=== PATIENT | female | born 1980 | race Caucasian/White ===

== ENCOUNTER → 2021-09-21 | Outpatient (CLI) | payer OTHER ==
--- NOTE | 2021-09-21 11:31 | CT ---
EXAMINATION TYPE: CT wrist LT wo con DATE OF EXAM: 09/21/2021 COMPARISON: X-ray dated 09/20/2021 HISTORY: fracture of lower Lt radius CT DLP: 334 mGycm Automated exposure control for dose reduction was used. TECHNIQUE: Multiplanar CT scan of the left wrist and distal radius without IV contrast administration . 3-D reconstruction images were generated on an independent workstation and reviewed. FINDINGS: Comminuted impacted fracture of the distal radial metadiaphysis extending to the distal radial articu lar surface, mainly dorsally with minimal lateral dorsal displacement of the distal fracture fragment . Multiple suspected bone fragments with 5 x 16 mm depressed bone fragment at the dorsal aspect of the distal radial metadiaphysis seen within the bone marrow. Extension of the fracture lines into the dis savannah radioulnar articulation and radiocarpal articulation. Mildly displaced fracture of the ulnar styloid process. No other definite acute fracture line identif ied. Soft tissue swelling/edema is seen surrounding the fractures. IMPRESSION: Comminuted impacted fracture of the distal radius with mildly displaced fracture of the ulnar styloid process as described above, for orthopedic consultation.
[2021-09-21 14:30] LABS: Basophils # (A) 0.09 X 10*3/uL (0.00-0.10); Eosinophils # (A) 0.24 X 10*3/uL (0.04-0.35); Eosinophils % (A) 2.7 %; HCT 39.7 % (37.2-46.3); HGB 12.6 g/dL (12.0-15.0); Immature Grans, Automated 0.4 %; Lymphocytes # (A) 3.12 X 10*3/uL (0.90-5.00); Lymphocytes % (A) 34.9 %; MCH 29.9 pg (27.0-32.0); MCHC 31.7 g/dL (32.0-37.0); MCV 94.1 fL (80.0-97.0); Mean Platelet Volume 10.1 fL (9.5-12.2); Monocytes # (A) 0.44 X 10*3/uL (0.20-1.00); Monocytes % (A) 4.9 %; NRBC Per 100 WBC 0 /100 WBCS (0.0-0.0); Neutrophils # (A) 5.01 X 10*3/uL (1.80-7.70); Neutrophils % (A) 56.1 %; Platelet Count 454 X 10*3/uL (140-440); RBC 4.22 X 10*6/uL (4.10-5.20); RDW 13.6 % (11.5-14.5); WBC 8.94 X 10*3/uL (4.50-10.00)
[2021-09-21 14:59] LABS: African American GFR (CKD) 133.1 (60.0-200.0); Anion Gap 14.2 mmol/L (10.00-18.00); Blood Urea Nitrogen 10.2 mg/dL (9.0-27.0); Calcium 9.2 mg/dL (8.7-10.3); Carbon Dioxide 23.8 mmol/L (20.0-27.5); Non-African American GFR(CKD) 114.8 (60.0-200.0); Potassium 3.7 mmol/L (3.5-5.5)
== END | disposition home or self-care (01) ==
LOC: RADCTMAIN 10:40
PROVIDERS: ATTEND Orthopaedic Surgery Hand Surgery
DX: Z01.818 Encounter for other preprocedural examination (principal); S52.572A Other intraarticular fracture of lower end of left radius, initial encounter for closed fracture; S52.613A Displaced fracture of unspecified ulna styloid process, initial encounter for closed fracture; X58.XXXA Exposure to other specified factors, initial encounter
CPT/HCPCS: 80048; 85025

== ENCOUNTER 2021-09-24 05:52 | Day surgery (SDC) | payer OTHER ==
[2021-09-22 14:53] VITALS: BMI 24.7
--- NOTE | 2021-09-23 23:02 | P.HPOR ---
History of Present Illness H&P Date: 09/23/21 Chief Complaint: Left intra-articular distal radius fracture Subjective: This is a 40 year old female that presents today for initial evaluation regarding a left wrist injury that occurred after a fall from standing on 09/08/21. She was seen at an outside ED where reduction and splinting was performed under sedation. She has been in the splint since then and has been non-weight bearing. She denies any constant paresthesias or prior injury to this risk. She has chronic back pain and is on Percocet 10's from her pain management physician. Physical Examination: LUE: AIN/PIN/Radial/Ulnar/Median motor intact. Radial/Ulnar/Median SILT. 2+/4 Radial/Ulnar pulses palpated. 5/5 APB, 5/5 FDI. Bruisng/ swelling present along dorsal and volar wrist, no open wounds. Imaging: X-Rays of the left wrist demonstrate a left intra-articular distal radius fracture and ulnar styloid fracture. Extensive metaphyseal comminution with extension of fracture line into metadiaphyseal region. Loss of radial height and inclination, 25 degrees of dorsal angulation. Very distal fracture line of distal radius fracture with 5mm of distal cortex present. Impression: 1.) Left intra-articular distal radius fracture with metaphyseal extension. 2.) Left ulnar styloid fracture. Plan: Diagnosis and treatment options were discussed with the patient. Fracture reduction has been lost on follow up imaging today and I recommend surgical intervention. Complexity of her fracture was discussed due to the extensive metaphyseal comminution and very distal location of her fracture line and we discussed traditional volar plating may not be an option due to these characteristics and that fragment specific vs dorsal spanning plate vs pinning may be needed. She expressed understanding of this and wishes to pursue surgery. Risks and benefit of surgery including bleeding, infection, damage to surrounding tissue, need for further surgery, possible need for secondary procedure for plate removal, residual numbness were discussed and the patient wished to go forward with surgery. Urgent CT scan is ordered for surgical planning and she is placed in a new wrist splint. She is to be non weight bearing, pre-op labs are ordered. -Emil Johnson DO Orthopedic Hand/Upper Extremity Surgeon Past Medical History Past Medical History: Hyperlipidemia Additional Past Medical History / Comment(s): Degenerative Disc Disease, herniated discs in back, chronic back pain, varicose veins. History of Any Multi-Drug Resistant Organisms: MRSA Date of last positivie culture/infection: 2007 MDRO Source:: hip, stomach Past Surgical History: Hernia Repair Additional Past Surgical History / Comment(s): LEEP Procedure. Past Anesthesia/Blood Transfusion Reactions: No Reported Reaction Past Psychological History: Anxiety, Depression Smoking Status: Current every day smoker Past Alcohol Use History: None Reported, Occasional Additional Past Alcohol Use History / Comment(s): Has been smoking for 30 yrs, 2 ppd. Past Drug Use History: Marijuana Additional Drug Use History / Comment(s): Marijuana use daily. Aware no use 24 hrs prior to procedure. - Past Family History Mother Family Medical History: Deep Vein Thrombosis (DVT) Medications and Allergies Home Medications Medication Instructions Recorded Confirmed Type ARIPiprazole [Abilify] 2 mg PO QAM 09/22/21 09/22/21 History Rosuvastatin Calcium 5 mg PO DAILY 09/22/21 09/22/21 History Sertraline HCl [Zoloft] 50 mg PO QAM 09/22/21 09/22/21 History clonazePAM [KlonoPIN] 0.5 mg PO DAILY PRN 09/22/21 09/22/21 History oxyCODONE HCL/ACETAMINOPHEN 1 tab PO TID PRN 09/22/21 09/22/21 History [Percocet 10-325 mg] Allergies Allergy/AdvReac Type Severity Reaction Status Date / Time No Known Allergies Allergy Verified 09/22/21 14:34 Physical Examination Osteopathic Statement: *. No significant issues noted on an osteopathic structural exam other than those noted in the History and Physical/Consult.
[~2021-09-24 05:52] MED LIST: DEXAMETHASONE SOD PHOSPHATE 4 MG/ML 1 ML VIAL IV ONE; LACTATED RINGERS 1,000 ML IV SCH; MIDAZOLAM 2 MG/2 ML VIAL IV PRN; ONDANSETRON 4 MG/2 ML VIAL IVP ONE; SCOPOLAMINE 1 MG/72 HR PATCH TRANSDERM ONE
[2021-09-24] MEDS ORDERED: fentaNYL (PF) 50 MCG/ML 2 ML AMP IVP ONE (06:56)
[2021-09-24] MEDS ORDERED: MIDAZOLAM 2 MG/2 ML VIAL IVP ONE (06:56)
[2021-09-24] MEDS ORDERED: HYDROmorphone 0.5 MG/0.5 ML SYRINGE IVP PRN (07:00)
[2021-09-24] MEDS ORDERED: ROPIVACAINE 5 MG/ML 30 ML VIAL ONE (07:28)
[2021-09-24] MEDS ORDERED: PROPOFOL 10 MG/ML 20 ML VIAL IV ONE (07:28)
[2021-09-24] MEDS ORDERED: HYDROmorphone (PF) 1 MG/ML ONE (07:28)
[2021-09-24] MEDS ORDERED: LIDOCAINE 1% INJ 10MG/ML (20 ML MDV) ONE (07:28)
[2021-09-24] MEDS ORDERED: SODIUM CHLORIDE 0.9% (PF) 10 ML VIAL ONE (07:28)
--- NOTE | 2021-09-24 08:58 | P.ANPRN ---
Procedure Note - Anesthesia - Nerve Block Performed Left Axillary Single Time Out Performed: Yes ([id number]) Date of Procedure: 09/24/21 Procedure Start Time: 06:56 Procedure Stop Time: 07:04 Location of Patient: PreOp Indication: Acute Post-Operative Pain, Requested by Surgeon Specifically requested for management of pain by DrArben: Emil Johnson Sedation Type: Sedate with meaningful contact maintained Preparation: Sterile Prep Position: Supine Catheter: None Needle Types: Pajunk Needle Gauge: 21 Ultrasound used to visualize needle placement: Yes Ultrasound used to observe medication spread: Yes Injectate: 0.5% Ropivacaine (see comment for volume) (30cc + 10cc nacl. 10cc at ulnar, medial, radial, mskcut) Blood Aspirated: No Pain Paresthesia on Injection Noted: No Resistance on Injection: Normal Image Stored and Saved: Yes Events: Uneventful and Well Tolerated
[2021-09-24 09:34] VITALS: TEMP 98.3
[2021-09-24 09:45] VITALS: RESP 16
[2021-09-24 10:25] VITALS: BP 117/75; PULSE 86
--- NOTE | 2021-09-24 11:31 | XR ---
EXAMINATION TYPE: XR wrist limited LT DATE OF EXAM: 09/24/2021 COMPARISON: NONE HISTORY: Pain TECHNIQUE: 4 views are submitted FINDINGS: Postsurgical changes are noted. Alignment near-anatomic. IMPRESSION: Postoperative change
--- NOTE | 2021-09-24 11:35 | FL ---
EXAMINATION TYPE: FL guidance operating room DATE OF EXAM: 09/24/2021 HISTORY: Fluoroscopy time 32 seconds of fluoroscopy provided. IMPRESSION: 1. Fluoroscopy time.
--- NOTE | 2021-09-24 20:23 | P.OP ---
Date of Procedure: 09/24/21 Preoperative Diagnosis: 1.) Left intra-articular distal radius fracture, comminuted, displaced, greater than 3 parts. Postoperative Diagnosis: Left intra-articular distal radius fracture, comminuted, displaced, greater than 3 parts. Procedure(s) Performed: Open reduction internal fixation of left intra-articular distal radius fracture, comminuted, displaced, greater than 3 parts with dorsal wrist spanning plate Implants: 1.) Synthes 2.4mm LCP dorsal wrist spanning plate 2.) 0.062 Wires x 2 Anesthesia: LUISA, regional Surgeon: Emil Johnson Estimated Blood Loss (ml): 5 Pathology: none sent Condition: stable Disposition: PACU Description of Procedure: This is a 40 year old female who sustained a left displaced intra-articular distal radius fracture 2 weeks prior after a fall from standing and presents today for surgical intervention. Due to the very distal location of the distal radius fracture we discussed volar locked plating would not likely be amendable to this particular fracture type and she presents today for surgical intervention includig possible dorsal spanning wrist plate application and pinning . Risks and benefits of surgery were discussed with the patient including bleeding, damage to surrounding tissue, infection, need for further surgery for hardware removal as well as risks of anesthesia including pulmonary embolism and even and the patient wished to proceed with surgical intervention. The patient was seen in the pre-operative area by myself. Consent and H&P were completed and updated. The correct extremity was marked in the pre- operative area by myself and all other questions were answered. Operative Narrative: The patient was brought to the operating room by the department of anesthesia. They remained on the portable stretcher and a rolling hand table was brought to the side of the operative extremity. Pre-operative time out was performed indicating the correct patient, procedure and laterality. All in the room agreed. Pre-operative antibiotics were given prior to skin incision. The patient was then drifted off to sleep by the department of anesthesia. A nonsterile tourniquet was then applied to the operative extremity and the left upper extremity was then prepped and draped in normal sterile fashion. The operative extremity was the exsanguinated with an esmarch bandage and the tourniquet was inflated to 250mmHg. Longitudinal incision was made centered over the mid and proximal portion of the third metacarpal, blunt dissection was taken down to periosteum. A second incision was made longitudinally just ulnar to Abe's Tubercle. There was hematoma dorsally. Further blunt dissection down to the the proximal portion of the extensor retinaculum was performed. The 3rd dorsal compartment was incised sharply and the EPL tendon was identified and transposed. The 4th dorsal compartment was then subperiosteally elevated from radial to ulnar to make room for the spanning plate. A third incision was made proximally over the dorsal aspect of the radius. Dissection was taken down to subcutaneous tissues, interval between ECRL/ECRB and Brachioradialis was identified and the superficial radial nerve was identified and protected. Dorsal radial shaft was t hen identified in the interval. A periosteal elevator was then used to make a tunnel from distal to proximal through the windows of the 3 incisions. A 2.4 mm Synthes dorsal wrist spanning plate was then tunneled through the previously created path centered at the 3rd metacarpal distally, at the floor of the 4th dorsal compartment, and then on the bare spot of the radius just adjacent to the wrist extensors. Lobster claw clamp was used to provisionally hold the plate in place and appropriate placement was appreciated on live fluoroscopy. The distal portion of the plate was drilled and a non-locking screw was placed in the metacarpal shaft. Attention was then brought to the most proximal incision and longitudinal traction was applied along with supination and ulnar deviation and the proximal holes were drilled and filled with non-locking screws. Reduction was then checked on x-ray and was found to be acceptable with good distraction of the fracture site. The remainder of the metacarpal screws were filled with 2 additional non-locking screws after all non locking screws were inserted. All fingers were flexed and extended and there appeared to be no entrapment of extensor tendons by the plate. Attention was then brought to shinto of volar tilt and radial inclination/translation. A 0.062 K wire was inserted in the dorsal ulnar portion of the fracture and intra-focal pinning Kapandji technique was used to lever the small distal articular portion to restore volar tilt, once shinto of tilt was confirmed, the pin was then driven through the volar cortex in retrograde fashion and backed out slightly with hemostat just piercing the cortex and confirmed on x-ray. A stab incision was then made along the radial aspect of the wrist though skin only, blunt dissection was afsaneh en down with hemostat to the radial styloid. A second 0.062 K-wire was then inserted into the radial portion of the fracture and then levered distally to restore radial height and ulnar translation. Final imaging was then taken and reduction was acceptable in all planes. Pins were then cut subcutaneously. The wound was then irrigated. Subcutaneous closure was performed with 4-0 monocryl followed by skin closure with 4-0 nylon suture. Sterile dressing consisting of adaptic, 4x4s, and a volar and dorsal plaster splint was applied. Tourniquet was let down and the hand had immediate perfusion. The patient was then woken by the department of anesthesia and transferred to PACU in stable condition. The patient was then woken by the department of anesthesia and transferred to PACU in stable condition. Emil Johnson DO Orthopedic Hand/Upper Extremity Surgeon
== END 2021-09-24 11:50 | disposition home or self-care (01) ==
LOC: OR 05:52
PROVIDERS: ATTEND Orthopaedic Surgery Hand Surgery
DX: S52.572A Other intraarticular fracture of lower end of left radius, initial encounter for closed fracture (principal); S52.612A Displaced fracture of left ulna styloid process, initial encounter for closed fracture; W18.30XA Fall on same level, unspecified, initial encounter; E78.5 Hyperlipidemia, unspecified; G89.29 Other chronic pain; M54.9 Dorsalgia, unspecified; F41.9 Anxiety disorder, unspecified; F32.A Depression, unspecified; I83.90 Asymptomatic varicose veins of unspecified lower extremity; F17.200 Nicotine dependence, unspecified, uncomplicated; Z79.899 Other long term (current) drug therapy; Z86.14 Personal history of Methicillin resistant Staphylococcus aureus infection; Z98.890 Other specified postprocedural states; Z97.2 Presence of dental prosthetic device (complete) (partial)
CPT/HCPCS: 25609; 81025; 64417; 76942; 73100; C1713; J2250; J1100; J0690; J2405; J2001; J3010; J1170 ×2; J2795; J2704; 64415

== ENCOUNTER 2021-12-08 06:58 | Day surgery (SDC) | payer OTHER ==
--- NOTE | 2021-12-06 09:39 | P.HPOR ---
History of Present Illness H&P Date: 12/06/21 Chief Complaint: Left distal radius fracture s/p ORIF Subjective: This is a 40 year old female that presents today for a post-operative visit after undergoing ORIF of her complex left distal radius fracture with dorsal spanning plate application and Kapandji pinning on 09/24/21. Her pain has drastically improved since last visit and she has been working on ROM of the fingers and hand. She denies any new injury. 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 Physical Examination: LUE: AIN/PIN/Radial/Ulnar/Median motor intact. Radial/Ulnar/Median SILT. 2+/4 Radial/Ulnar pulses palpated. Dorsal incisions healed. Able to make full composite fist. Imaging: X-Rays of the left wrist demonstrate intact dorsal spanning plate with 2 k-wire present with no evidence of hardware failure. Episcopalian of radial height, inclination and volar tilt is appreciated with signs of serafin healing. Impression: 1.) S/P Left distal radius ORIF Plan: Diagnosis and treatment options and were discussed with the patient. She has signs of bone healing on x-ray. I recommend another 3 weeks of plate retention until hardware removal is performed, she is agreeable with this plan. She is tentatively scheduled for hardware removal of her left wrist ( plate and screws and 2 k-wires). She is to remain non-weightbearing and may continue to work on hand and finger ROM. -Emil Johnson DO Orthopedic Hand/Upper Extremity Surgeon Past Medical History Past Medical History: Hyperlipidemia Additional Past Medical History / Comment(s): back pain, umbilical hernia History of Any Multi-Drug Resistant Organisms: MRSA Date of last positivie culture/infection: 2007 MDRO Source:: hip, stomach Past Surgical History: Hernia Repair Additional Past Surgical History / Comment(s): LEEP Past Anesthesia/Blood Transfusion Reactions: No Reported Reaction Past Alcohol Use History: None Reported, Rare - Past Family History Mother Family Medical History: Deep Vein Thrombosis (DVT) Medications and Allergies Home Medications Medication Instructions Recorded Confirmed Type ARIPiprazole [Abilify] 2 mg PO QAM 09/22/21 09/24/21 History Rosuvastatin Calcium 5 mg PO DAILY 09/22/21 09/24/21 History Sertraline HCl [Zoloft] 50 mg PO QAM 09/22/21 09/24/21 History clonazePAM [KlonoPIN] 0.5 mg PO DAILY PRN 09/22/21 09/24/21 History oxyCODONE HCL/ACETAMINOPHEN 1 tab PO TID PRN 09/22/21 09/24/21 History [Percocet 10-325 mg] Allergies Allergy/AdvReac Type Severity Reaction Status Date / Time No Known Allergies Allergy Verified 09/24/21 06:30 Physical Examination Osteopathic Statement: *. No significant issues noted on an osteopathic structural exam other than those noted in the History and Physical/Consult.
[2021-12-07 09:19] VITALS: BMI 23.6
[~2021-12-08 06:58] MED LIST changes: -DEXAMETHASONE SOD PHOSPHATE 4 MG/ML 1 ML VIAL IV ONE; +LIDOCAINE 1% (10MG/ML) FOR IV START INTRADERMA PRN; -MIDAZOLAM 2 MG/2 ML VIAL IV PRN; -ONDANSETRON 4 MG/2 ML VIAL IVP ONE; -SCOPOLAMINE 1 MG/72 HR PATCH TRANSDERM ONE
[2021-12-08] MEDS ORDERED: fentaNYL (PF) 50 MCG/ML 2 ML AMP IV PRN (07:00)
[2021-12-08] MEDS ORDERED: ONDANSETRON 4 MG/2 ML VIAL ONE (07:46)
[2021-12-08] MEDS ORDERED: DEXAMETHASONE SOD PHOSPHATE 4 MG/ML 1 ML VIAL IVP ONE (07:48)
[2021-12-08] MEDS ORDERED: ONDANSETRON 4 MG/2 ML VIAL IVP ONE (07:48)
[2021-12-08] MEDS ORDERED: fentaNYL (PF) 50 MCG/ML 2 ML AMP ONE (08:10)
[2021-12-08] MEDS ORDERED: MIDAZOLAM 2 MG/2 ML VIAL ONE (08:10)
[2021-12-08] MEDS ORDERED: LIDOCAINE 2% INJ 20 MG/ML (2 ML VIAL) ONE (08:10)
[2021-12-08] MEDS ORDERED: PROPOFOL 10 MG/ML 20 ML VIAL IV ONE (08:10)
[2021-12-08] MEDS ORDERED: HYDROmorphone (PF) 1 MG/ML ONE (08:10)
[2021-12-08] MEDS ORDERED: BUPIVACAINE (PF) 0.5% 30 ML VIAL SQ ONE ×2 (08:35→09:07)
[2021-12-08 09:31] VITALS: TEMP 97.2
[2021-12-08 10:15] VITALS: RESP 20
[2021-12-08 10:20] VITALS: BP 123/86; PULSE 83
--- NOTE | 2021-12-08 18:39 | P.OP ---
Date of Procedure: 12/08/21 Preoperative Diagnosis: Left intra-articular distal radius fracture s/p temporary wrist spanning plate application. Postoperative Diagnosis: Left intra-articular distal radius fracture s/p temporary wrist spanning plate application. Procedure(s) Performed: 1.) Left wrist removal of deep implants. ( Dorsal spanning plate and K-wire x 2 2.) Extensor tenolysis at level of hand/wrist. Anesthesia: PETRAA Surgeon: Emil Johnson Estimated Blood Loss (ml): 5 Pathology: none sent Condition: stable Disposition: PACU Description of Procedure: This is a 41 year old female who presents today for a left wrist removal of deep hardware after undergoing temporary spanning fixiation for a comminuted, distally located, intra-articular distal radius fracture. Risks and benefits of surgery were discussed with the patient including bleeding, damage to surrounding tissue, infection, need for further surgery as well as risks of anesthesia including pulmonary embolism and even and the patient wished to proceed with surgical intervention. The patient was seen in the pre-operative area by myself. Consent and H&P were completed and updated. The correct extremity was marked in the pre-operative area by myself and all other questions were answered Operative Narrative: The patient was brought to the operating room by the department of anesthesia. They remained on the portable stretcher and a rolling hand table was brought to the side of the operative extremity. Pre-operative time out was performed indicating the correct patient, procedure and laterality. All in the room agreed. Pre-operative antibiotics were given prior to skin incision. The patient was then drifted off to sleep by the department of anesthesia. A nonsterile tourniquet was then applied to the operative extremity and the left upper extremity was then prepped and draped in normal sterile fashion. The operative extremity was the exsanguinated with an esmarch bandage and the tourniquet was inflated to 250mmHg. Longitudinal incision was made centered over the mid and proximal portion of the third metacarpal at site of previous scar, blunt dissection was taken down to periosteum. A second incision was made longitudinally just ulnar to Abe's Tubercle at site of previous scar. Further blunt dissection down to the the proximal portion of the extensor retinaculum was performed. The 4th dorsal compartment was then subperiostally elevated from radial to ulnar to reveal the spanning plate. A third incision was made proximally over the dorsal aspect of the radius at the site of the previous incision. Dissection was taken down to subcutaneous tissues, interval between ECRL/ECRB and Brachioradialis was identified and the superficial radial nerve was identified and protected. Dorsal radial shaft was then identified in the interval with the proximal plate being identified. All three non-locking screws were removed from the shaft. Third metacarpal shaft screws were then removed with screwdriver. A periosteal elevator was used to free the plate from surrounding bone to loosen the plate which was then removed. The wound was then irrigated. Extensor tenolysis was then performed through the middle window, freeing surrounding scar tissue from the third and four dorsal compartment tendons which were all found to be intact. Through the distal incision the third metacarpal extensor tendon was identified and found to be intact and scar tissue and adhesions were broken up and scar tissue was excised. Throught the middle window incision K-wire was identified and removed. Another small incision was made over the radial aspect of the wrist where the radial k-wire was palpated. Blunt dissection was performed down to the pin and the pin was removed with ease. Fluoroscopy was then utilized to confirm removal of all plates and screws and k-wires. Wrist was flexed and extended under fluoroscopy and distal radius fracture was moving as a single unit and 50 degrees of flexion/extension was appreciated. There was solid union of the fracture site appreciated with orthodox of volar tilt, radial height and inclination. Wounds were irrigated and subcutaneous closure was performed with 4-0 monocryl followed by skin closure with running 4-0 monocryl suture. Sterile dressing consisting of steri strips, mastisol, 4x4s, and cast padding was applied. Tourniquet was let down and the hand had immediate perfusion. The patient was then woken by the department of anesthesia and transferred to PACU in stable condition. Emil Johnson DO Orthopedic Hand/Upper Extremity Surgeon
== END 2021-12-08 10:23 | disposition home or self-care (01) ==
LOC: OR 06:58
PROVIDERS: ATTEND Orthopaedic Surgery Hand Surgery
DX: Z47.2 Encounter for removal of internal fixation device (principal); E78.5 Hyperlipidemia, unspecified; F17.210 Nicotine dependence, cigarettes, uncomplicated; M54.9 Dorsalgia, unspecified; Z86.14 Personal history of Methicillin resistant Staphylococcus aureus infection; Z79.899 Other long term (current) drug therapy; Z98.890 Other specified postprocedural states; Z97.2 Presence of dental prosthetic device (complete) (partial); Z82.49 Family history of ischemic heart disease and other diseases of the circulatory system
CPT/HCPCS: 81025; 20680; J2250; J1100; J0690; J2405; J3010; J1170; J2704; J2001

== ENCOUNTER 2024-02-27 23:21 | Emergency (ER) | payer OTHER ==
[2024-02-27 23:25] VITALS: RESP 18
--- NOTE | 2024-02-27 23:50 | ED ---
ENT HPI - General Chief complaint: ENT Stated complaint: Earache Time Seen by Provider: 02/27/24 23:48 Source: patient, RN notes reviewed Mode of arrival: ambulatory Limitations: no limitations - History of Present Illness Initial comments: 43-year-old female presented to ER with a chief complaint of right ear pain. Patient states last night she started to experience a sharp pain in her right ear. She states today she noticed a pink watery drainage from her right ear. She states it is difficult to hear out of her right ear. She denies any injuri es or traumas. Denies any recent sinus infections or colds. Patient states pain started out of the blue. Denies any fevers, chills or other complaints. - Related Data Home Medications Medication Instructions Recorded Confirmed ARIPiprazole [Abilify] 2 mg PO QAM 09/22/21 12/08/21 Rosuvastatin Calcium 5 mg PO DAILY 09/22/21 12/08/21 Sertraline HCl [Zoloft] 50 mg PO QAM 09/22/21 12/08/21 clonazePAM [KlonoPIN] 0.5 mg PO DAILY PRN 09/22/21 12/08/21 oxyCODONE HCL/ACETAMINOPHEN 1 tab PO TID PRN 09/22/21 12/08/21 [Percocet 10-325 mg] Allergies Allergy/AdvReac Type Severity Reaction Status Date / Time No Known Allergies Allergy Verified 02/27/24 23:25 Review of Systems ROS Statement: Those systems with pertinent positive or pertinent negative responses have been documented in the HPI. ROS Other: All systems not noted in ROS Statement are negative. Past Medical History Past Medical History: Hyperlipidemia Additional Past Medical History / Comment(s): back pain, fx lt wrist 09/2021, heart palpitations History of Any Multi-Drug Resistant Organisms: MRSA Date of last positivie culture/infection: 2007 MDRO Source:: hip, stomach Past Surgical History: Hernia Repair, Orthopedic Surgery Additional Past Surgical History / Comment(s): LEEP, orif lt wrist Past Anesthesia/Blood Transfusion Reactions: No Reported Reaction Past Psychological History: Anxiety, Depression Smoking Status: Current every day smoker, Vaper Past Alcohol Use History: Daily Past Drug Use History: Marijuana - Past Family History Mother Family Medical History: COPD, Diabetes Mellitus, Deep Vein Thrombosis (DVT), Hypertension General Exam General appearance: alert, in no apparent distress Head exam: Present: atraumatic, normocephalic, normal inspection Eye exam: Present: normal appearance, PERRL, EOMI. Absent: scleral icterus, conjunctival injection, periorbital swelling ENT exam: Present: normal exam, normal oropharynx, other (Right tympanic membrane appears intact. There is fluid behind membrane. Blood is noted behind membrane. No mastoid tenderness bilaterally. Left tympanic membrane normal) Neck exam: Present: normal inspection. Absent: tenderness, meningismus, lymphadenopathy Respiratory exam: Present: normal lung sounds bilaterally. Absent: respiratory distress, wheezes, rales, rhonchi, stridor Cardiovascular Exam: Present: regular rate, normal rhythm, normal heart sounds. Absent: systolic murmur, diastolic murmur, rubs, gallop, clicks Neurological exam: Present: alert, oriented X3, CN II-XII intact Skin exam: Present: warm, dry, intact, normal color. Absent: rash Course Vital Signs 02/27/24 23:22 Temperature 98.4 F Pulse Rate 113 H Respiratory 18 Rate Blood Pressure 134/89 O2 Sat by Pulse 98 Oximetry Medical Decision Making - Medical Decision Making Was pt. sent in by a medical professional or institution (, PA, RIDING TEACHER, urgent care, hospital, or half-way...) When possible be specific @ -No Did you speak to anyone other than the patient for history (EMS, parent, family, police, friend...)? What history was obtained from this source @ -No Did you review nursing and triage notes (agree or disagree)? Why? @ -I reviewed and agree with nursing and triage notes Were old charts reviewed (outside hosp., previous admission, EMS record, old EKG, old radiological studies, urgent care reports/EKG's, half-way records)? Report findings @ -No old charts were reviewed Differential Diagnosis (chest pain, altered mental status, abdominal pain women, abdominal pain men, vaginal bleeding, weakness, fever, dyspnea, syncope, headache, dizziness, GI bleed, back pain, seizure, CVA, palpatations, mental health, musculoskeletal)? @ -Foreign body, otitis media, otitis externa, tympanic membrane perforation, vertigo This list is not meant to be all-inclusive EKG interpreted by me (3pts min.). @ -None done X-rays interpreted by me (1pt min.). @ -None done CT interpreted by me (1pt min.). @ -None done U/S interpreted by me (1pt. min.). @ -None done What testing was considered but not performed or refused? (CT, X-rays, U/S, labs)? Why? @ -None What meds were considered but not given or refused? Why? @ -None Did you discuss the management of the patient with other professionals (professionals i.e. , PA, RIDING TEACHER, lab, RT, psych nurse, director social, irish moss operator, teacher, marine safety officer, caseworker intake)? Give summary @ -No Was smoking cessation discussed for >3mins.? @ -I discussed smoking cessation for greater than 3 minutes. The risk of smoking were discussed with the patient including but not limited to risks of cancer, stroke, coronary artery disease and COPD. Also discussed with patient were multiple methods of quitting smoking. Lastly we discussed the financial cost of smoking. Was critical care preformed (if so, how long)? @ -No Were there social determinants of health that impacted care today? How? (Homelessness, low income, unemployed, alcoholism, drug addiction, transportation, low edu. Level, literacy, decrease access to med. care, snf, rehab)? @ -No Was there de-escalation of care discussed even if they declined (Discuss DNR or withdrawal of care, Hospice)? DNR status @ -No What co-morbidities impacted this encounter? (DM, HTN, Smoking, COPD, CAD, Cancer, CVA, ARF, Chemo, Hep., AIDS, mental health diagnosis, sleep apnea, morbid obesity)? @ -None Was patient admitted / discharged? Hospital course, mention meds given and route, prescriptions, significant lab abnormalities, going to OR and other pertinent info. @ -Discharge. 43-year-old female presented to ER with chief complaint of right ear pain. History and physical exam completed. Vitals within normal limits. Exam remarkable for what appears to be an intact right tympanic membrane. There is blood and fluid noted behind membrane. Clear fluid is noted draining from the right ear. No mastoid tenderness bilaterally. Left membrane appears normal. Exam otherwise benign. Due to concern of perforation with fluid and blood behind the ear and drainage patient will be started on ofloxacin eardrops. Advised patient to follow-up very closely with an ENT, referral given. Strict return parameters discussed. Patient discharged in stable condition with follow-up to ENT. Patient verbally expressed understanding and agreement with care plan. Case discussed with ED attending, Dr. Goodrich. Undiagnosed new problem with uncertain prognosis? @ -No Drug Therapy requiring intensive monitoring for toxicity (Heparin, Nitro, Insulin, Cardizem)? @ -No Were any procedures done? @ -No Diagnosis/symptom? @ -Tympanic membrane perforation Acute, or Chronic, or Acute on Chronic? @ -Acute Uncomplicated (without systemic symptoms) or Complicated (systemic symptoms)? @ -Uncomplicated Side effects of treatment? @ -No Exacerbation, Progression, or Severe Exacerbation? @ -No Poses a threat to life or bodily function? How? (Chest pain, USA, NM, pneumonia, PE, COPD, DKA, ARF, appy, cholecystitis, CVA, Diverticulitis, Homicidal, Suicidal, threat to staff... and all critical care pts) @ -No Disposition Clinical Impression: Tympanic membrane perforation Disposition: HOME SELF-CARE Condition: Stable Instructions (If sedation given, give patient instructions): Ruptured Eardrum (ED) Additional Instructions: Please follow-up with ENT by the end of the week. Use ofloxacin drops (5 drops in affected ear twice daily for 7 days). Return to ER for any new or worsening concerns. Is patient prescribed a controlled substance at d/c from ED?: No Referrals: Jacque Lay NPC [Primary Care Provider] - 1-2 days Geoffrey Cannon MD [STAFF PHYSICIAN] - 1-2 days Time of Disposition: 23:49
[2024-02-28] MEDS: OFLOXACIN 0.3% OPHTH DROPS 5 ML BOTTLE RIGHT EAR STA (00:20)
[2024-02-28 00:24] VITALS: BP 128/81; PULSE 91; TEMP 98.2
== END 2024-02-28 00:24 | disposition home or self-care (01) ==
LOC: EC 23:21
CPT/HCPCS: 99282

== ENCOUNTER 2025-01-09 23:09 | Emergency (ER) | payer OTHER ==
--- NOTE | 2025-01-09 23:28 | ED ---
Psych HPI - General Source: patient, RN notes reviewed Mode of arrival: ambulatory Limitations: no limitations <Pau Brown - Last Filed: 01/10/25 03:50> <Orlin Lacy - Last Filed: 01/10/25 09:30> - General Stated Complaint: SI Time Seen by Provider: 01/09/25 23:28 - History of Present Illness Initial Comments: 44-year-old female presented to the ER for suicidal ideation. Patient is petitioned by daughter. Patient reports she was having an argument with her daughter as she did not picking machine operator her granddaughter and over 24 hours. Patient states she was upset and took 2 Percocet tens, two 0.5 mg Klonopin and two 1 mg Xanax around 10:30 PM. She also reports drinking vodka. Per petition, patient texted daughter saying "I am going to sleep forever". Patient denies SI or attempt of overdose. Denies HI or auditory or visual hallucinations. Patient admits to marijuana use no other illicit drug use. Patient denies any current pain. (Pau Brown) - Related Data Home Medications Medication Instructions Recorded Confirmed ARIPiprazole [Abilify] 2 mg PO QAM 09/22/21 12/08/21 Rosuvastatin Calcium 5 mg PO DAILY 09/22/21 12/08/21 Sertraline HCl [Zoloft] 50 mg PO QAM 09/22/21 12/08/21 clonazePAM [KlonoPIN] 0.5 mg PO DAILY PRN 09/22/21 12/08/21 oxyCODONE HCL/ACETAMINOPHEN 1 tab PO TID PRN 09/22/21 12/08/21 [Percocet 10-325 mg] Allergies Allergy/AdvReac Type Severity Reaction Status Date / Time No Known Allergies Allergy Verified 02/27/24 23:25 Review of Systems ROS Other: All systems not noted in ROS Statement are negative. <Pau Brown - Last Filed: 01/10/25 03:50> ROS Other: All systems not noted in ROS Statement are negative. <Orlin Lacy - Last Filed: 01/10/25 09:30> ROS Statement: Those systems with pertinent positive or pertinent negative responses have been documented in the HPI. Past Medical History Past Medical History: Hyperlipidemia Additional Past Medical History / Comment(s): back pain, fx lt wrist 09/2021, heart palpitations History of Any Multi-Drug Resistant Organisms: MRSA Date of last positivie culture/infection: 2007 MDRO Source:: hip, stomach Past Surgical History: Hernia Repair, Orthopedic Surgery Additional Past Surgical History / Comment(s): LEEP, orif lt wrist Past Anesthesia/Blood Transfusion Reactions: No Reported Reaction Past Psychological History: Anxiety, Depression Smoking Status: Current every day smoker, Vaper Past Alcohol Use History: Daily Past Drug Use History: Marijuana - Past Family History Mother Family Medical History: COPD, Diabetes Mellitus, Deep Vein Thrombosis (DVT), Hypertension <Pau Brown - Last Filed: 01/10/25 03:50> General Exam Limitations: no limitations General appearance: alert, in no apparent distress, appears intoxicated (Patient intoxicated frequently falling asleep during examination) Respiratory exam: Present: normal lung sounds bilaterally. Absent: respiratory distress, wheezes, rales, rhonchi, stridor Cardiovascular Exam: Present: regular rate, normal rhythm, normal heart sounds. Absent: systolic murmur, diastolic murmur, rubs, gallop, clicks Neurological exam: Present: alert Psychiatric exam: Present: suicidal ideation (Intoxicated) Skin exam: Present: warm, dry, intact, normal color. Absent: rash <Pau Brown - Last Filed: 01/10/25 03:50> Course Vital Signs 01/09/25 01/10/25 01/10/25 23:21 00:53 02:00 Temperature 97.7 F Pulse Rate 77 78 82 Respiratory 17 17 16 Rate Blood Pressure 117/96 124/94 140/94 O2 Sat by Pulse 94 L 100 100 Oximetry 01/10/25 01/10/25 01/10/25 03:00 04:00 05:28 Temperature Pulse Rate 76 76 86 Respiratory 16 15 16 Rate Blood Pressure 119/95 O2 Sat by Pulse 98 99 100 Oximetry 01/10/25 05:47 Temperature Pulse Rate 81 Respiratory 16 Rate Blood Pressure 117/97 O2 Sat by Pulse 95 Oximetry Medical Decision Making - Lab Data Result diagrams: 01/10/25 00:21 01/10/25 00:21 - EKG Data -: EKG Interpreted by Or <Pau Brown - Last Filed: 01/10/25 03:50> - Lab Data Result diagrams: 01/10/25 00:21 01/10/25 00:21 <Orlin Lacy - Last Filed: 01/10/25 09:30> - Medical Decision Making Was pt. sent in by a medical professional or institution (, PA, DIRECTOR MBA, urgent care, hospital, or [facility]...) When possible be specific @ -No Did you speak to anyone other than the patient for history (EMS, parent, family, police, friend...)? What history was obtained from this source @ -No Did you review nursing and triage notes (agree or disagree)? Why? @ -I reviewed and agree with nursing and triage notes Were old charts reviewed (outside hosp., previous admission, EMS record, old EKG, old radiological studies, urgent care reports/EKG's, [facility] records)? Report findings @ -No old charts were reviewed Differential Diagnosis (chest pain, altered mental status, abdominal pain women, abdominal pain men, vaginal bleeding, weakness, fever, dyspnea, syncope, head ache, dizziness, GI bleed, back pain, seizure, CVA, palpatations, mental health, musculoskeletal)? @ -Differential Mental Health:Depression, anxiety, bipolar, psychosis, schizophrenia, borderline personality, situational depression, adjustment disorder, behavioral disorder, brain tumor, malingering, substance abuse, encephalopathy, medication reaction, dementia, hypothyroidism, degenerative neur ologic disorder, lupus.... This is not meant to be all-inclusive list EKG interpreted by me (3pts min.). @ -As above X-rays interpreted by me (1pt min.). @ -None done CT interpreted by me (1pt min.). @ -None done U/S interpreted by me (1pt. min.). @ -None done What testing was considered but not performed or refused? (CT, X-rays, U/S, labs)? Why? @ -None What meds were considered but not given or refused? Why? @ -None Did you discuss the management of the patient with other professionals ( professionals i.e. , KONG, DIRECTOR MBA, lab, RT, psych nurse, social services coordinator, service plumber, teacher, vessel traffic officer, pillowcase cleaner)? Give summary @ -No Was smoking cessation discussed for >3mins.? @ -No Was critical care preformed (if so, how long)? @ -No Were there social determinants of health that impacted care today? How? (Homelessness, low income, unemployed, alcoholism, drug addiction, transportation, low edu. Level, literacy, decrease access to med. care, retirement, rehab)? @ -No Was there de-escalation of care discussed even if they declined (Discuss DNR or withdrawal of care, Hospice)? DNR status @ -No What co-morbidities impacted this encounter? (DM, HTN, Smoking, COPD, CAD, Cancer, CVA, ARF, Chemo, Hep., AIDS, mental health diagnosis, sleep apnea, morbid obesity)? @ -None Was patient admitted / discharged? Hospital course, mention meds given and route, prescriptions, significant lab abnormalities, going to OR and other pertinent info. @ -44-year-old female presented the ER via EMS for mental health evaluation. Patient is petitioned by daughter. Vital signs stable. Patient appears intoxicated frequently falling asleep during exam. No signs of acute distress. Given concern of possible overdose laboratory studies obtained remarkable for mild elevation in AST 53, ALT 39 this may be reactive to alcohol consumption. Salicylates <1.0, acetaminophen<10.0, serum alcohol 106. Poison control was contacted by Amira MAYBERRY they recommend observation until 5 AM. Patient provided with IV fluids and will be monitored in the emergency department until medically cleared for EPS evaluation. (Pau Brown) Case was discussed with psychiatric worker with plans for discharge. Patient reevaluated. Patient denies suicidal ideation and does contract for [facility] Diagnosis: Depression, suicidal ideation Acuity: Acute, acute (Orlin Lacy) - Lab Data Lab Results 01/10/25 01/10/25 01/10/25 Range/Units 00:21 00:21 07:04 WBC 7.10 (4.50-10.00) 10*3/uL RBC 4.57 (4.10-5.20) 10*6/uL Hgb 14.0 (12.0-15.0) g/dL Hct 42.0 (37.2-46.3) % MCV 91.9 (80.0-97.0) fL MCH 30.6 (27.0-32.0) pg MCHC 33.3 (32.0-37.0) g/dL Plt Count 382 (140-440) 10*3/uL MPV 9.9 (9.5-12.2) fL Immature Gran % (Auto) 0.3 % Neutrophils % 47.7 % Lymphocytes % 39.0 % Monocytes % 7.0 % Eosinophils % 4.6 % Basophils % 1.4 % Immature Gran # 0.02 (0.00-0.04) 10*3/uL Neutrophils # 3.38 (1.80-7.70) 10*3/uL Lymphocytes # 2.77 (0.90-5.00) 10*3/uL Monocytes # 0.50 (0.20-1.00) 10*3/uL Eosinophils # 0.33 (0.04-0.35) 10*3/uL Basophils # 0.10 (0.00-0.10) 10*3/uL Sodium 142 (137-145) mmol/L Potassium 4.0 (3.5-5.1) mmol/L Chloride 107 (98-107) mmol/L Carbon Dioxide 24 (22-30) mmol/L Anion Gap 11 mmol/L BUN 10 (7-17) mg/dL Creatinine 0.55 (0.52-1.04) mg/dL Est GFR (CKD-EPI)AfAm >90 (>60 ml/min/1.73 sqM) Est GFR (CKD-EPI)NonAf >90 (>60 ml/min/1.73 sqM) Glucose 93 (74-99) mg/dL Calcium 9.7 (8.4-10.2) mg/dL Total Bilirubin 0.2 (0.2-1.3) mg/dL AST 53 H (14-36) U/L ALT 39 H (4-34) U/L Alkaline Phosphatase 105 (38-126) U/L Total Protein 7.6 (6.3-8.2) g/dL Albumin 4.6 (3.5-5.0) g/dL Salicylates <1.0 mg/dL Urine Opiates Screen Not Detected (NotDetected) Ur Oxycodone Screen Detected H (NotDetected) Urine Methadone Screen Not Detected (NotDetected) Acetaminophen <10.0 ug/mL Ur Barbiturates Screen Not Detected (NotDetected) U Tricyclic Antidepress Not Detected (NotDetected) Ur Phencyclidine Scrn Not Detected (NotDetected) Ur Amphetamines Screen Detected H (NotDetected) U Methamphetamines Scrn Detected H (NotDetected) U Benzodiazepines Scrn Detected H (NotDetected) Urine Cocaine Screen Not Detected (NotDetected) U Marijuana (THC) Screen Detected H (NotDetected) Serum Alcohol 106 mg/dL - EKG Data EKG Comments: EKG taken at 0: 14 showing a sinus rhythm with occasional PVC. No ST segment elevations. Ventricular rate 83, KS interval 129, QRS duration 107, QT/QTc 398/438. (Pau Brown) Disposition <Pau Brown - Last Filed: 01/10/25 03:50> Is patient prescribed a controlled substance at d/c from ED?: No Time of Disposition: 09:30 <Orlin Lacy - Last Filed: 01/10/25 09:30> Clinical Impression: Alcohol intoxication, Depression Disposition: HOME SELF-CARE Condition: Stable Instructions (If sedation given, give patient instructions): Depression (ED) Additional Instructions: Discontinue alcohol use. Please do follow-up with your primary care physician in the next day or 2 for recheck. Return for thoughts of self-harm, worsening symptoms or other concerns. Please follow-up with mental health services as directed. Referrals: Jacque Lay NPC [Family Provider] - 1-2 days
[2025-01-10 00:31] LABS: Basophils # (A) 0.10 10*3/uL (0.00-0.10); Basophils % (A) 1.4 %; Eosinophils # (A) 0.33 10*3/uL (0.04-0.35); Eosinophils % (A) 4.6 %; HCT 42.0 % (37.2-46.3); HGB 14.0 g/dL (12.0-15.0); Lymphocytes # (A) 2.77 10*3/uL (0.90-5.00); Lymphocytes % (A) 39.0 %; MCH 30.6 pg (27.0-32.0); MCHC 33.3 g/dL (32.0-37.0); MCV 91.9 fL (80.0-97.0); Monocytes # (A) 0.50 10*3/uL (0.20-1.00); Monocytes % (A) 7.0 %; Neutrophils # (A) 3.38 10*3/uL (1.80-7.70); Neutrophils % (A) 47.7 %; Platelet Count 382 10*3/uL (140-440); RBC 4.57 10*6/uL (4.10-5.20); RDW 12.8 % (11.5-14.5); WBC 7.10 10*3/uL (4.50-10.00)
[2025-01-10] MEDS: SODIUM CHLORIDE 0.9% 1,000 ML IV ONE (00:38)
[2025-01-10 00:43] LABS: ALT 39 U/L (4-34); AST 53 U/L (14-36); Acetaminophen <10.0 ug/mL; African American GFR (CKD) >90 (>60 ml/min/1.73 sqM); Albumin 4.6 g/dL (3.5-5.0); Alkaline Phosphatase 105 U/L (38-126); Anion Gap 11 mmol/L; Blood Urea Nitrogen 10 mg/dL (7-17); Calcium 9.7 mg/dL (8.4-10.2); Carbon Dioxide 24 mmol/L (22-30); Chloride 107 mmol/L (98-107); Glucose 93 mg/dL (74-99); Non-African American GFR(CKD) >90 (>60 ml/min/1.73 sqM); Potassium 4.0 mmol/L (3.5-5.1); Salicylate <1.0 mg/dL; Sodium 142 mmol/L (137-145); Total Protein 7.6 g/dL (6.3-8.2)
[2025-01-10 08:31] LABS: Opiate Screen,Urine Not Detected (NotDetected); Phencyclidine Screen,Urine Not Detected (NotDetected); Urn Cannabinoid Scrn Detected (NotDetected)
[2025-01-10 08:32] LABS: Barbiturate Screen,Urine Not Detected (NotDetected); Benzodiazepines Screen,Urine Detected (NotDetected); Oxycodone Screen, Urine Detected (NotDetected); Tricyclic Antidepressant,Urine Not Detected (NotDetected)
[2025-01-10 09:45] VITALS: BP 132/93; PULSE 79; RESP 14; TEMP 98
== END 2025-01-10 10:51 | disposition home or self-care (01) ==
LOC: EC 23:09
DX: F10.129 Alcohol abuse with intoxication, unspecified (principal); F32.A Depression, unspecified; F17.290 Nicotine dependence, other tobacco product, uncomplicated
CPT/HCPCS: 36415; 80053; 80143; 80179; 80306; 80320; 82075; 85025; 93005; 99285